=== PATIENT | female | born 1960 | race Caucasian/White ===

== ENCOUNTER 2019-07-27 01:58 | Emergency (ER) | payer OTHER ==
[~2019-07-27] VITALS: Ht 170.2 cm; Wt 83.5 kg
[2019-07-27] MEDS ORDERED: HYDROCHLOROTHIA25 M2 PO (02:22)
[2019-07-27] MEDS ORDERED: LEVO-T100 MCG PO (02:23)
[2019-07-27] MEDS ORDERED: NORCO 5-325 TA1 EAC1 PO (02:45)
[2019-07-27 03:15] VITALS: BP 147/78
== END 2019-07-27 03:00 | disposition home or self-care (01) ==
LOC: M.ERS 01:58
DX: S61.411A Laceration without foreign body of right hand, initial encounter (principal); I10 Essential (primary) hypertension; E03.9 Hypothyroidism, unspecified; W25.XXXA Contact with sharp glass, initial encounter; Y93.89 Activity, other specified; Y92.89 Other specified places as the place of occurrence of the external cause; Y99.8 Other external cause status